=== PATIENT | female | born 1940 | race Caucasian/White ===

== ENCOUNTER 2023-06-21 20:55 | Emergency (ER) | payer OTHER ==
[2023-06-21] MEDS ORDERED: DIPHTH,PERTUSS(ACELL),TET 0.5 ML DISP.SYRIN IM ONE ×2 (21:40→22:34)
[2023-06-21 22:11] VITALS: BP 132/71; PULSE 78; RESP 16; TEMP 98.5; BMI 22.3
== END 2023-06-21 22:44 | disposition home or self-care (01) ==
LOC: FER 20:55
PROC: 0HQEXZZ Repair Left Lower Arm Skin, External Approach (ICD-10-PCS; principal; 2023-06-21)
PROC: 0HQDXZZ Repair Right Lower Arm Skin, External Approach (ICD-10-PCS; 2023-06-21)
DX: S51.811A Laceration without foreign body of right forearm, initial encounter (principal); S51.812A Laceration without foreign body of left forearm, initial encounter; W10.9XXA Fall (on) (from) unspecified stairs and steps, initial encounter
CPT/HCPCS: 12002-25; 90471; 90715; 99283-25